=== PATIENT | male | born 1960 ===

== ENCOUNTER 2017-03-05 21:06 | Emergency (ER) | payer SELFPAY ==
[2017-03-05 21:16] VITALS: BP 157/99; PULSE 92; RESP 18; TEMP 98.2; O2SAT 98
--- NOTE | 2017-03-05 21:51 | ED PDOC ---
Lower Extremity Pain/Injury Time Seen by Provider: 03/05/17 21:11 Chief Complaint (Nursing): Lower Extremity Problem/Injury Chief Complaint (Provider): Leg pain Additional Complaint(s): right leg pain rodríguez when he walks foot feels like needle. Past Medical History Reviewed: Nursing Documentation, Vital Signs Vital Signs: Last Vital Signs Temp 98.2 F 03/05/17 21:14 Pulse 92 H 03/05/17 21:14 Resp 18 03/05/17 21:14 BP 157/99 H 03/05/17 21:14 Pulse Ox 98 03/05/17 21:14 - Medical History PMH: No Chronic Diseases - Surgical History Surgical History: No Surg Hx - Family History Family History: States: No Known Family Hx - Living Arrangements Living Arrangements: With Family - Home Medications Home Medications: Ambulatory Orders Medication Instructions Recorded Clotrimazole 1% Cream [Lotrimin 1%] 1 inch TP DAILY #1 tube 11/17/16 Sulfamethoxazole/Trimethoprim 1 tab PO BID #14 tab 11/17/16 [Bactrim DS 800 mg-160 mg] Ibuprofen [Motrin] 600 mg PO Q6 #20 tab 03/05/17 - Allergies Allergies/Adverse Reactions: Allergies Allergy/AdvReac Type Severity Reaction Status Date / Time No Known Allergies Allergy Verified 12/29/16 10:09 Wells Criteria for PE - Wells Criteria for Pulmonary Embolism Clinical Signs and Symptoms of DVT: No P.E is #1 Diagnosis, or Equally Likely: No Heart Rate >100: No Immobilization at least 3 days;Surgery previous 4 weeks: No Previous, objectively diagnosed PE or DVT: No Hemoptysis: No Malignancy w/treatment within 6 months, or palliative: No Total Score: 0 Review of Systems ROS Statement: Except As Marked, All Systems Reviewed And Found Negative Musculoskeletal: Positive for: Leg Pain, Foot Pain Physical Exam - Reviewed Nursing Documentation Reviewed: Yes Vital Signs Reviewed: Yes - Physical Exam Appears: Positive for: Well, Non-toxic, No Acute Distress Head Exam: Positive for: ATRAUMATIC, NORMAL INSPECTION, NORMOCEPHALIC Skin: Positive for: Normal Color, Warm, DRY Eye Exam: Positive for: EOMI, Normal appearance, PERRL ENT: Positive for: Normal ENT Inspection Neck: Positive for: Normal, Painless ROM Cardiovascular/Chest: Positive for: Regular Rate, Rhythm Respiratory: Positive for: CNT, Normal Breath Sounds Gastrointestinal/Abdominal: Positive for: Normal Exam, Bowel Sounds, Soft Back: Positive for: Normal Inspection Extremity: Positive for: Normal ROM Neurologic/Psych: Positive for: Alert, Oriented - ECG O2 Sat by Pulse Oximetry: 98 Medical Decision Making Medical Decision Making: Medicted with 600 mg tab Motrin PO Duplex US: negative for DVD Foot and Knee XR: NAd, as read by PA-C Pt doing well on re-eval, referred to podiatry Disposition - Clinical Impression Clinical Impression: Leg pain - Patient ED Disposition Is Patient to be Admitted: No - Disposition Referrals: Marlon Peng III, MD [Staff Provider] - Disposition: Routine/Home Disposition Time: 23:00 Condition: STABLE Prescriptions: Ibuprofen [Motrin] 600 mg PO Q6 #20 tab Instructions: Leg Pain (ED) Forms: [facility] (German)
--- NOTE | 2017-03-05 22:22 | US ---
EXAM: US Duplex Right Lower Extremity Veins CLINICAL HISTORY: 56 years old, male; Pain; Other: Rt leg TECHNIQUE: Real-time ultrasound scan of the veins of the right lower extremity with color Doppler flow, spectral waveform analysis and compression. COMPARISON: No relevant prior studies available. FINDINGS: Deep veins: Unremarkable. No DVT in the visualized common femoral, femoral, proximal deep femoral or popliteal veins. The veins demonstrate normal color flow, are normally compressible, with normal phasic flow and/or augmentation response. Superficial veins: Unremarkable. Soft tissues: No acute findings. No popliteal cyst. IMPRESSION: Normal right lower extremity duplex venous ultrasound.
--- NOTE | 2017-03-06 09:12 | RAD ---
PROCEDURE: Right Foot Radiographs. HISTORY: pain COMPARISON: None. FINDINGS: BONES: There is no acute displaced fracture or bone destruction bone alignment and mineralization are normal. JOINTS: Normal. SOFT TISSUES: Normal. OTHER FINDINGS: None. IMPRESSION: No acute fracture or dislocation.
--- NOTE | 2017-03-06 09:13 | RAD ---
PROCEDURE: Right Knee Radiographs. HISTORY: Pain COMPARISON: None. FINDINGS: BONES: Normal. No acute fracture. JOINTS: Normal. No osteoarthritis. JOINT EFFUSION: None. OTHER FINDINGS: None. IMPRESSION: No acute fracture or dislocation.
== END 2017-03-05 23:13 | disposition home or self-care (01) ==
LOC: MERGE 21:06 → H.ER 21:06
DX: M79.604 Pain in right leg (principal)

== ENCOUNTER 2017-06-11 20:34 | Inpatient (IN) | payer MEDICAID ==
[2017-06-11 20:34] VITALS: BMI 35.0
--- NOTE | 2017-06-11 21:35 | ED PDOC ---
HPI: Eye Injury/Pain Time Seen by Provider: 06/11/17 20:37 Chief Complaint (Nursing): Eye Problem Chief Complaint (Provider): Right eye visual change History Per: Patient History/Exam Limitations: no limitations Onset/Duration Of Symptoms: Days (5 and a half hours) Injury To Eye?: No Associated Symptoms: Decreased Vision. denies: Pain Additional Complaint(s): Patient is a 56 y/o male with no past medical history who presents to the ED complaining of painless atraumatic vision loss to right eye at 16:00 today while eating, with sudden onset. Patient describes the vision loss as "blurry" and states his vision is the same as if he is opening his eyes while underwater. He reports his symptoms are localized to the right eye, and weston any headache, eye pain, weakness, numbness, or contact lens use. PCP: NO FAMILY PROVIDER Past Medical History Reviewed: Historical Data, Nursing Documentation, Vital Signs Vital Signs: Last Vital Signs Temp 97.9 F 06/11/17 21:03 Pulse 102 H 06/11/17 21:03 Resp 18 06/11/17 21:03 BP 171/103 H 06/11/17 21:22 Pulse Ox 99 06/11/17 21:03 - Medical History PMH: No Chronic Diseases Denies: Chronic Kidney Disease - Surgical History Other surgeries: Removal of cyst on back - Family History Family History: States: Unknown Family Hx - Social History Current smoker - smoking cessation education provided: Yes (Light smoke < 10 cigarettes daily) Alcohol: None Drugs: Cannabis - Immunization History Hx Tetanus Toxoid Vaccination: No Hx Influenza Vaccination: No Hx Pneumococcal Vaccination: No - Home Medications Home Medications: Ambulatory Orders Medication Instructions Recorded No Known Home Med 06/11/17 - Allergies Allergies/Adverse Reactions: Allergies Allergy/AdvReac Type Severity Reaction Status Date / Time No Known Allergies Allergy Verified 12/29/16 10:09 Review of Systems ROS Statement: Except As Marked, All Systems Reviewed And Found Negative Eyes: Positive for: Vision Change (right eye, "blurry" vision). Negative for: Pain Neurological: Negative for: Weakness, Numbness, Headache Physical Exam - Reviewed Nursing Documentation Reviewed: Yes Vital Signs Reviewed: Yes - Physical Exam Appears: Positive for: Well, Non-toxic, No Acute Distress Head Exam: Positive for: ATRAUMATIC, NORMOCEPHALIC Skin: Positive for: Normal Color, Warm, Dry. Negative for: Rash Eye Exam: Positive for: Normal appearance, EOMI, PERRL, Other (No red light reflex on R eye; L eye with red light reflex). Negative for: Nystagmus, Periorbital swelling, Periorbital tenderness, Conjunctival injection, Scleral icterus ENT: Positive for: Normal ENT Inspection Neck: Positive for: Normal, Painless ROM Cardiovascular/Chest: Positive for: Regular Rate, Rhythm. Negative for: Murmur Respiratory: Positive for: Normal Breath Sounds. Negative for: Respiratory Distress Gastrointestinal/Abdominal: Positive for: Normal Exam, Bowel Sounds, Soft. Negative for: Tenderness Back: Positive for: Normal Inspection Extremity: Positive for: Normal ROM Neurologic/Psych: Positive for: Alert, Oriented (x3), Gait (stead unassisted), Other (Equal traffic engineering technician strength bilaterally). Negative for: Motor/Sensory Deficits, Aphasia, Facial Droop - Laboratory Results Result Diagrams: 06/11/17 21:21 06/11/17 21:21 - ECG ECG: Positive for: Interpreted By Me ECG Rhythm: Positive for: Sinus Rhythm. Negative for: ST/T Changes Rate: 88 O2 Sat by Pulse Oximetry: 99 (RA) Pulse Ox Interpretation: Normal - Radiology X-Ray: Interpreted by Me (CXR) Medical Decision Making Medical Decision Makin Initial Plan: --CT Head W/O Contrast --EKG --Labs --Troponin I --PTT --PT/INR --Sales Special Agent --IV Insertion -After patient evaluation, case was discussed with Dr. Mcintyre who recommended CT, blood-work, and consult with Dr. Sandoval 2129 -Case discussed with Dr. Sandoval who agrees with care and recommends measurement of IOP, will see patient in the hospital, also states patient does not require further testing other than CT of head. 2134 R eye IOP: 21, 24, [address] head w/o contrast: 1. No definite acute intracranial abnormality. Acute infarction may be CT occult within first 24 hours. If a focal deficit persists, consider followup CT or MRI for further evaluation. 2. Sinus disease. Pt. evaluated by Dr. Mcintyre. 2222 Case d/w Dr. Ospina and arrangements made for admission. ASA 324mg PO. Repeat BP: 143/81 Scribe Attestation: Documented by Echo Viramontes, acting as a scribe for Abner Singh PA-C Provider Scribe Attestation: All medical record entries made by the Scribe were at my direction and personally dictated by me. I have reviewed the chart and agree that the record accurately reflects my personal performance of the history, physical exam, medical decision making, and the department course for this patient. I have also personally directed, reviewed, and agree with the discharge instructions and disposition. Disposition - Clinical Impression Clinical Impression: Vision loss, right eye - Patient ED Disposition Is Patient to be Admitted: Yes - Disposition Disposition Time: 21:30 Condition: STABLE - Pt Status Changed To: Hospital Disposition Of: Inpatient - Admit Certification Admit to Inpatient:: After my assessment, the patient will require hospitalization for at least two midnights. This is because of the severity of symptoms shown, intensity of services needed, and/or the medical risk in this patient being treated as an outpatient.
[2017-06-11 21:36] LABS: BASO # 0.1 K/uL (0.0-0.2); BASO % 0.8 % (0.0-2.0); EOS # 0.3 K/uL (0.0-0.7); HEMATOCRIT 46.4 % (35.0-51.0); LYMPH # 2.7 K/uL (1.0-4.3); LYMPH % 28.1 % (20.0-40.0); MEAN CELL VOLUME 92.2 fl (80.0-94.0); MEAN CORPUSCULAR HEMOGLOBIN 30.8 pg (27.0-31.0); MEAN CORPUSCULAR HGB CONC 33.5 g/dL (33.0-37.0); MONO # 1.1 K/uL (0.0-0.8); NEUT # 5.5 K/uL (1.8-7.0); NEUT % 57.1 % (50.0-75.0); NRBC % 0.1 % (0.0-0.0); RED CELL DISTRIBUTION WIDTH 13.7 % (11.5-14.5); WHITE BLOOD COUNT 9.6 K/uL (4.8-10.8)
[2017-06-11 21:53] LABS: ALB/GLOB RATIO 1.1 (1.0-2.1); BILIRUBIN,TOTAL 0.6 mg/dl (0.2-1.3); CALCIUM 9.4 mg/dL (8.4-10.2); CARBON DIOXIDE 27 mmol/L (22-30); CHLORIDE 106 mmol/L (98-107); GFR AFRICAN-AMERICAN > 60; GLUCOSE,RANDOM 99 mg/dL (75-110); SODIUM 142 mmol/l (132-148)
[2017-06-11 21:56] LABS: ALKALINE PHOSPHATASE 57 U/L (38-126); ALT/SGPT 56 U/L (21-72); AST/SGOT 45 U/L (17-59); BLOOD UREA NITROGEN 12 mg/dl (9-20); POTASSIUM 4.6 MMOL/L (3.6-5.0)
--- NOTE | 2017-06-11 22:05 | CT ---
EXAM: CT Head Without Intravenous Contrast CLINICAL HISTORY: 56 years old, male; Signs and symptoms; Visual disturbance; Additional info: Sudden loss of vision TECHNIQUE: Axial computed tomography images of the head/brain without intravenous contrast. All CT scans at this facility use one or more dose reduction techniques, viz.: automated exposure control; ma/kV adjustment per patient size (including targeted exams where dose is matched to indication; i.e. head); or iterative reconstruction technique. Coronal and sagittal reformatted images were created and reviewed. COMPARISON: No relevant prior studies available. FINDINGS: Brain: No intracranial hemorrhage. No mass. No definite edema. Ventricles: No hydrocephalus. Bones/joints: No acute fracture. Soft tissues: Unremarkable. Sinuses: Mild mucosal thickening/mild fluid of frontal sinuses. Moderate mucosal thickening/minimal fluid of maxillary sinuses. Moderate to extensive opacification of ethmoid sinuses. Near complete opacification of RIGHT sphenoid sinus. [id number] mucosal thickening/minimal fluid of LEFT sphenoid sinus. Mastoid air cells: No mastoid effusion. Orbits: Unremarkable as visualized. IMPRESSION: 1. No definite acute intracranial abnormality. Acute infarction may be CT occult within first 24 hours. If a focal deficit persists, consider followup CT or MRI for further evaluation. 2. Sinus disease.
[2017-06-12 06:09] VITALS: RESP 18
[2017-06-12 08:37] VITALS: BP 147/89; TEMP 97.8; O2SAT 97
[2017-06-12] MEDS ORDERED: Phenylephrine 10% Opht Soln OU ONE (08:47)
[2017-06-12] MEDS ORDERED: Tropicamide 1% Opht 150 DROP/15 ML EACHEYE SCH (09:00)
[2017-06-12] MEDS: Enoxaparin 40 mg Syringe SC SCH ×2 (09:10→09:11)
--- NOTE | 2017-06-12 11:12 | CARD ---
APPROVED REPORT EKG Measurement Heart [id number] <Conclusion> Normal sinus rhythm Nonspecific ST abnormality Abnormal ECG
--- NOTE | 2017-06-12 11:36 | CP.PCM.HP ---
History of Present Illness - History of Present Illness History of Present Illness: This is a56 y/o male admitted from last night through the ER for sudden blurring of vision of the right eye. There was no associated sx of headaches dizziness. Denies trauma. Symptom started while he was having his dinner. Has no sigificant medical history. Strong family hx of DM 2. Present on Admission - Present on Admission Any Indicators Present on Admission: No History of DVT/PE: No History of Uncontrolled Diabetes: No Urinary Catheter: No Decubitus Ulcer Present: No Past Patient History - Past Medical History & Family History Past Medical History?: No - Past Social History Smoking Status: Light Smoker < 10 Cigarettes Daily - CARDIAC Hx Cardiac Disorders: No - PULMONARY Hx Respiratory Disorders: No - NEUROLOGICAL Hx Neurological Disorder: No - HEENT Hx HEENT Problems: No - RENAL Hx Chronic Kidney Disease: No - ENDOCRINE/METABOLIC Hx Endocrine Disorders: No - HEMATOLOGICAL/ONCOLOGICAL Hx Blood Disorders: No - INTEGUMENTARY Hx Dermatological Problems: No - MUSCULOSKELETAL/RHEUMATOLOGICAL Hx Falls: No - GASTROINTESTINAL Hx Gastrointestinal Disorders: No - GENITOURINARY/GYNECOLOGICAL Hx Genitourinary Disorders: No - PSYCHIATRIC Hx Substance Use: No - SURGICAL HISTORY Hx Surgeries: Yes Other/Comment: removal of cyst to back - ANESTHESIA Hx Anesthesia: Yes Hx Anesthesia Reactions: No Meds Allergies/Adverse Reactions: Allergies Allergy/AdvReac Type Severity Reaction Status Date / Time No Known Allergies Allergy Verified 12/29/16 10:09 Physical Exam - Head Exam Head Exam: NORMAL INSPECTION - Eye Exam Eye Exam: Normal appearance Pupil Exam: NORMAL ACCOMODATION Additional comments: decreased visual acuity right - ENT Exam ENT Exam: Mucous Membranes Moist - Respiratory Exam Respiratory Exam: Clear to Auscultation Bilateral - Cardiovascular Exam Cardiovascular Exam: REGULAR RHYTHM - GI/Abdominal Exam GI & Abdominal Exam: Normal Bowel Sounds - Neurological Exam Neurological exam: CN II-XII Intact, Oriented x3 - Psychiatric Exam Psychiatric exam: Normal Mood Results - Vital Signs Recent Vital Signs: Last Vital Signs Temp 97.8 F 06/12/17 08:00 Pulse 70 06/12/17 08:00 Resp 18 06/12/17 08:00 BP 147/89 06/12/17 08:00 Pulse Ox 97 06/12/17 08:00 - Labs Result Diagrams: 06/11/17 21:21 06/11/17 21:21 Labs: Laboratory Results - last 24 hr 06/11/17 06/11/17 06/11/17 21:21 21:21 21:21 WBC 9.6 RBC 5.04 Hgb 15.5 Hct 46.4 MCV 92.2 MCH 30.8 MCHC 33.5 RDW 13.7 Plt Count 283 MPV 8.0 Neut % (Auto) 57.1 Lymph % (Auto) 28.1 [place] % (Auto) 11.0 H Eos % (Auto) 3.0 Baso % (Auto) 0.8 Neut # 5.5 Lymph # 2.7 [place] # 1.1 H Eos # 0.3 Baso # 0.1 PT 10.7 INR 1.0 APTT 32.0 Sodium 142 Potassium 4.6 Chloride 106 Carbon Dioxide 27 Anion Gap 14 BUN 12 Creatinine 1.0 Est GFR ( Amer) > 60 Est GFR (Non-Af Amer) > 60 Random Glucose 99 Calcium 9.4 Total Bilirubin 0.6 AST 45 ALT 56 Alkaline Phosphatase 57 Troponin I < 0.0120 Total Protein 8.0 Albumin 4.2 Globulin 3.8 Albumin/Globulin Ratio 1.1 Alcohol, Quantitative 06/11/17 21:50 WBC RBC Hgb Hct MCV MCH MCHC RDW Plt Count MPV Neut % (Auto) Lymph % (Auto) [place] % (Auto) Eos % (Auto) Baso % (Auto) Neut # Lymph # [place] # Eos # Baso # PT INR APTT Sodium Potassium Chloride Carbon Dioxide Anion Gap BUN Creatinine Est GFR ( Amer) Est GFR (Non-Af Amer) Random Glucose Calcium Total Bilirubin AST ALT Alkaline Phosphatase Troponin I Total Protein Albumin Globulin Albumin/Globulin Ratio Alcohol, Quantitative < 10 Assessment & Plan (1) Vitreous hemorrhage of right eye Status: Acute (2) Vision loss, right eye Status: Acute (3) Hypertension Status: Acute - Assessment and Plan (Free Text) Plan: Discussed with Optha and noted vitreous hemorrhage low salt low fat diet will Dc to home and follow up with optha start low dose valsartan 80 mg daily
[2017-06-12 11:39] VITALS: PULSE 75
--- NOTE | 2017-06-12 11:41 | CP.PCM.DIS ---
Provider - Provider Date of Admission: 06/11/17 22:23 Attending physician: Carlos Ospina MD Time Spent in preparation of Discharge (in minutes): 30 Diagnosis - Discharge Diagnosis (1) Vitreous hemorrhage of right eye Status: Acute (2) Vision loss, right eye Status: Acute (3) Hypertension Status: Acute Hospital Course - Lab Results Lab Results: Most Recent Lab Values WBC 9.6 K/uL (4.8-10.8) 06/11/17 21:21 RBC 5.04 Mil/uL (4.40-5.90) 06/11/17 21:21 Hgb 15.5 g/dL (12.0-18.0) 06/11/17 21:21 Hct 46.4 % (35.0-51.0) 06/11/17 21:21 MCV 92.2 fl (80.0-94.0) 06/11/17 21:21 MCH 30.8 pg (27.0-31.0) 06/11/17 21:21 MCHC 33.5 g/dL (33.0-37.0) 06/11/17 21:21 RDW 13.7 % (11.5-14.5) 06/11/17 21:21 Plt Count 283 K/uL (130-400) 06/11/17 21:21 MPV 8.0 fl (7.2-11.7) 06/11/17 21:21 Neut % (Auto) 57.1 % (50.0-75.0) 06/11/17 21:21 Lymph % (Auto) 28.1 % (20.0-40.0) 06/11/17 21:21 [place] % (Auto) 11.0 % (0.0-10.0) H 06/11/17 21:21 Eos % (Auto) 3.0 % (0.0-4.0) 06/11/17 21:21 Baso % (Auto) 0.8 % (0.0-2.0) 06/11/17 21:21 Neut # 5.5 K/uL (1.8-7.0) 06/11/17 21:21 Lymph # 2.7 K/uL (1.0-4.3) 06/11/17 21:21 [place] # 1.1 K/uL (0.0-0.8) H 06/11/17 21:21 Eos # 0.3 K/uL (0.0-0.7) 06/11/17 21:21 Baso # 0.1 K/uL (0.0-0.2) 06/11/17 21:21 PT 10.7 Seconds (9.8-13.1) 06/11/17 21:21 INR 1.0 (0.9-1.2) 06/11/17 21:21 APTT 32.0 Seconds (25.6-37.1) 06/11/17 21:21 Sodium 142 mmol/l (132-148) 06/11/17 21:21 Potassium 4.6 MMOL/L (3.6-5.0) 06/11/17 21:21 Chloride 106 mmol/L (98-107) 06/11/17 21:21 Carbon Dioxide 27 mmol/L (22-30) 06/11/17 21:21 Anion Gap 14 (10-20) 06/11/17 21:21 BUN 12 mg/dl (9-20) 06/11/17 21:21 Creatinine 1.0 mg/dl (0.8-1.5) 06/11/17 21:21 Est GFR ( Amer) > 60 06/11/17 21:21 Est GFR (Non-Af Amer) > 60 06/11/17 21:21 Random Glucose 99 mg/dL (75-110) 06/11/17 21:21 Calcium 9.4 mg/dL (8.4-10.2) 06/11/17 21:21 Total Bilirubin 0.6 mg/dl (0.2-1.3) 06/11/17 21:21 AST 45 U/L (17-59) 06/11/17 21:21 ALT 56 U/L (21-72) 06/11/17 21:21 Alkaline Phosphatase 57 U/L (38-126) 06/11/17 21:21 Troponin I < 0.0120 ng/mL (0.00-0.120) 06/11/17 21:21 Total Protein 8.0 G/DL (6.3-8.2) 06/11/17 21:21 Albumin 4.2 g/dL (3.5-5.0) 06/11/17 21:21 Globulin 3.8 gm/dL (2.2-3.9) 06/11/17 21:21 Albumin/Globulin Ratio 1.1 (1.0-2.1) 06/11/17 21:21 Alcohol, Quantitative < 10 mg/dl (0-10) 06/11/17 21:50 - Hospital Course Hospital Course: Admitted for sudden blurred vision of the right. Noted slight elevated BP. Seen by Optha and noted vitreous hemorrhage. Advised to follow up as outpatient. Discharge Exam - Head Exam Head Exam: NORMAL INSPECTION - Eye Exam Eye Exam: Normal appearance - Respiratory Exam Respiratory Exam: NORMAL BREATHING PATTERN - Cardiovascular Exam Cardiovascular Exam: REGULAR RHYTHM - GI/Abdominal Exam GI & Abdominal Exam: Normal Bowel Sounds - Neurological Exam Neurological exam: CN II-XII Intact, Oriented x3 - Psychiatric Exam Psychiatric exam: Normal Mood Discharge Plan - Follow Up Plan Condition: STABLE Disposition: HOME/ ROUTINE Additional Instructions: discharge patient to home will start valsartan 80 mg daily follow up with lynda
--- NOTE | 2017-06-12 13:12 | RAD ---
HISTORY: clearance COMPARISON: No prior. FINDINGS: LUNGS: No acute consolidation. There is a vague nodular density seen in the left CP angle region which may represent confluence of shadow artifact however the possibility of a small parenchymal nodule or granuloma not excluded. Followup nonemergent CT scan of the chest is recommended for further evaluation. PLEURA: No significant pleural effusion identified, no pneumothorax apparent. CARDIOVASCULAR: Normal. OSSEOUS STRUCTURES: No significant abnormalities. VISUALIZED UPPER ABDOMEN: Normal. OTHER FINDINGS: None. IMPRESSION: No acute consolidation. There is a vague nodular density seen in the left CP angle region which may represent confluence of shadow artifact however the possibility of a small parenchymal nodule or granuloma not excluded. Followup nonemergent CT scan of the chest is recommended for further evaluation. . Note this report was placed in PA review folder for followup.
[2017-06-12 16:53] LABS: CHOLESTEROL 166 mg/dL (0-199)
--- NOTE | 2017-06-13 07:09 | CON ---
DATE: HISTORY OF PRESENT ILLNESS: Mr. Contreras is a 56-year-old white male who experienced sudden loss of vision in the right eye yesterday and came to the emergency room and was admitted. PHYSICAL EXAMINATION: His visual acuity is count fingers in the right eye, 20/20 in the left eye. The exam is unremarkable except for a vitreous hemorrhage in the right eye. The retina cannot be well visualized, but my assessment is that he has had a vein occlusion in the right eye. PLAN: My advice is to discharge the patient. I will see him in the office tomorrow and do a workup including fluorescein angiography and probable laser treatment to clear the hemorrhage. Ab Sandoval MD
== END 2017-06-12 13:44 | disposition home or self-care (01) | DRG 47 ==
LOC: H.ER 20:34 → H.ERHOLD 22:23 → H.TEL 06-12 00:28
PROVIDERS: ADMIT Family Medicine; ATTEND Family Medicine
DX: H43.11 Vitreous hemorrhage, right eye (principal); E11.9 Type 2 diabetes mellitus without complications; H54.61 Unqualified visual loss, right eye, normal vision left eye; F17.210 Nicotine dependence, cigarettes, uncomplicated; I10 Essential (primary) hypertension; Z83.3 Family history of diabetes mellitus

== ENCOUNTER 2017-06-15 13:07 | Emergency (ER) | payer MEDICAID ==
[2017-06-15 13:07] VITALS: BMI 35.0
[2017-06-15 13:42] VITALS: BP 149/94; PULSE 73; RESP 18; TEMP 97.7; O2SAT 99
--- NOTE | 2017-06-15 14:10 | ED PDOC ---
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 Patient states he called his insurance for referral, but was told to come to ER. Patient has no medical complaints. Patient is agitated in ER. pt offers no medical complaints. PMD: No Family Provider Past Medical History Vital Signs: Last Vital Signs Temp 97.7 F 06/15/17 13:40 Pulse 73 06/15/17 13:40 Resp 18 06/15/17 13:40 BP 149/94 H 06/15/17 13:40 Pulse Ox 99 06/15/17 15:10 - Medical History PMH: Denies: Chronic Kidney Disease - Family History Family History: States: Unknown Family Hx - Immunization History Hx Tetanus Toxoid Vaccination: No Hx Influenza Vaccination: No Hx Pneumococcal Vaccination: No - Home Medications Home Medications: Ambulatory Orders Medication Instructions Recorded No Known Home Med 06/11/17 - Allergies Allergies/Adverse Reactions: Allergies Allergy/AdvReac Type Severity Reaction Status Date / Time No Known Allergies Allergy Verified 12/29/16 10:09 - ECG O2 Sat by Pulse Oximetry: 99 (RA) Pulse Ox Interpretation: Normal Medical Decision Making Medical Decision Making: Time: 14:09 - 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 pt understands instructions. Scribe Attestation: Documented by Triston Escobar, acting as a scribe for Aissatou Scott PA-C Provider Scribe Attestation: All medical record entries made by the Scribe were at my direction and personally dictated by me. I have reviewed the chart and agree that the record accurately reflects my personal performance of the history, physical exam, medical decision making, and the department course for this patient. I have also personally directed, reviewed, and agree with the discharge instructions and disposition.tIME: 14:09 Disposition - Clinical Impression Clinical Impression: Vitreous hemorrhage of right eye - Patient ED Disposition Is Patient to be Admitted: No - Disposition Referrals: [facility] [Outside] [facility] [Outside] Disposition: Routine/Home Disposition Time: 14:09 Condition: STABLE Instructions: Blurred Vision (ED) Forms: [employer] [facility] (Khmer)
== END 2017-06-15 14:19 | disposition home or self-care (01) ==
LOC: H.ER 13:07
DX: H43.11 Vitreous hemorrhage, right eye (principal)

== ENCOUNTER 2017-06-30 02:51 | Emergency (ER) | payer MEDICAID ==
[2017-06-30 02:51] VITALS: BMI 35.0
[2017-06-30 03:04] VITALS: BP 124/72; PULSE 76; RESP 18; TEMP 98.7; O2SAT 99
--- NOTE | 2017-06-30 03:29 | ED PDOC ---
Lower Extremity Pain/Injury Time Seen by Provider: 06/30/17 03:01 Chief Complaint (Nursing): Lower Extremity Problem/Injury Chief Complaint (Provider): right leg pain History Per: Patient History/Exam Limitations: no limitations Onset/Duration Of Symptoms: Persistent Current Symptoms Are (Timing): Still Present Additional History Per: Patient Additional Complaint(s): 56yo male, with history of hypertension, presents to ED with complaints of right foot pain radiating to his right leg over the last 6 months. Patient states he did not have insurance and did not get a referral for a material reclaimer so he came to the ED. Patient denies taking any medication for his pain. Patient denies any trauma, injuries, swelling, chest pain, shortness of breath. Patient with no other complaints. Past Medical History Reviewed: Historical Data, Nursing Documentation, Vital Signs Vital Signs: Last Vital Signs Temp 98.7 F 06/30/17 03:01 Pulse 76 06/30/17 03:01 Resp 18 06/30/17 03:01 BP 124/72 06/30/17 03:01 Pulse Ox 99 06/30/17 03:01 - Medical History PMH: HTN Denies: Chronic Kidney Disease - Surgical History Surgical History: No Surg Hx - Family History Family History: States: Unknown Family Hx - Immunization History Hx Tetanus Toxoid Vaccination: No Hx Influenza Vaccination: No Hx Pneumococcal Vaccination: No - Home Medications Home Medications: Ambulatory Orders Medication Instructions Recorded Ibuprofen [Motrin Tab] 600 mg PO Q6 #30 tab 06/30/17 - Allergies Allergies/Adverse Reactions: Allergies Allergy/AdvReac Type Severity Reaction Status Date / Time No Known Allergies Allergy Verified 12/29/16 10:09 Review of Systems ROS Statement: Except As Marked, All Systems Reviewed And Found Negative Cardiovascular: Negative for: Chest Pain Respiratory: Negative for: Shortness of Breath Musculoskeletal: Positive for: Leg Pain (right ), Foot Pain (right ) Physical Exam - Reviewed Nursing Documentation Reviewed: Yes Vital Signs Reviewed: Yes - Physical Exam Appears: Positive for: Non-toxic, No Acute Distress Skin: Positive for: Normal Color Eye Exam: Positive for: Normal appearance Neck: Positive for: Supple Cardiovascular/Chest: Positive for: Regular Rate, Rhythm Respiratory: Positive for: Normal Breath Sounds. Negative for: Respiratory Distress Pulses-Dorsalis Pedis (L): 2+ Pulses-Dorsalis Pedis (R): 2+ Extremity: Positive for: Normal ROM (normal ROM right lower extremity), Other ( flattened arches on feet). Negative for: Calf Tenderness, Deformity, Swelling Neurologic/Psych: Positive for: Alert, Oriented. Negative for: Motor/Sensory Deficits - ECG O2 Sat by Pulse Oximetry: 99 (RA) Pulse Ox Interpretation: Normal Medical Decision Making Medical Decision Making: Impression: Pes Planus Plan: -- Flexeril 10 mg PO -- Motrin 600 mg PO Reassess Time: 033 Patient reports feeling much better, stable for discharge home. Patient given referral to material reclaimer for follow up. Scribe Attestation: Documented by Jessica Orourke acting as a scribe for Owen Marie MD. Provider Attestation: All medical record entries made by the Scribe were at my direction and personally dictated by me. I have reviewed the chart and agree that the record accurately reflects my personal performance of the history, physical exam, medical decision making, and the department course for this patient. I have also personally directed, reviewed, and agree with the discharge instructions and disposition. Disposition - Clinical Impression Clinical Impression: Pes planus - Disposition Referrals: Podiatry Clinic [Outside] Yvette Shook MD [Primary Care Provider] - Disposition: Routine/Home Disposition Time: 03:31 Condition: IMPROVED Additional Instructions: Please followup in podiatry clinic. Prescriptions: Ibuprofen [Motrin Tab] 600 mg PO Q6 #30 tab Forms: [employer] (Lithuanian)
== END 2017-06-30 03:30 | disposition home or self-care (01) ==
LOC: H.ER 02:51
DX: M21.41 Flat foot [pes planus] (acquired), right foot (principal); I10 Essential (primary) hypertension

== ENCOUNTER 2017-07-04 14:39 | Emergency (ER) | payer MEDICAID ==
[2017-07-04 14:39] VITALS: BMI 35.0
[2017-07-04 14:47] VITALS: BP 147/103; PULSE 83; RESP 18; TEMP 98; O2SAT 100
--- NOTE | 2017-07-04 15:48 | ED PDOC ---
HPI: General Adult Time Seen by Provider: 07/04/17 14:55 Chief Complaint (Nursing): ENT Problem Chief Complaint (Provider): BLurred vision, right eye History Per: Patient History/Exam Limitations: no limitations Onset/Duration Of Symptoms: Days Have you had recent travel within the past 21 days to any of the following countries: [place], [place], [place] or [place]?: No Current Symptoms Are (Timing): Still Present Additional Complaint(s): Pt reports blurred vision in the right eye since 06/11/17. Pt was admitted to the hospital and evaluated by Dr. Sandoval. PT states that he went to his office for a lazer procedure but when he got there they told him he needed a different card. PT states he comes to ER for further evaluation. Pt states he did not make follow-up with eye doctor yet. No fever/chills. No recent trauma. Pt asks if he can have eye drops. Past Medical History Reviewed: Historical Data, Nursing Documentation, Vital Signs Vital Signs: Last Vital Signs Temp 98 F 07/04/17 14:47 Pulse 83 07/04/17 14:47 Resp 18 07/04/17 14:47 BP 147/103 H 07/04/17 14:47 Pulse Ox 100 07/04/17 15:48 - Medical History PMH: HTN Denies: Chronic Kidney Disease - Surgical History Surgical History: No Surg Hx - Family History Family History: States: Unknown Family Hx - Immunization History Hx Tetanus Toxoid Vaccination: No Hx Influenza Vaccination: No Hx Pneumococcal Vaccination: No - Home Medications Home Medications: Ambulatory Orders Medication Instructions Recorded Ibuprofen [Motrin Tab] 600 mg PO Q6 #30 tab 06/30/17 - Allergies Allergies/Adverse Reactions: Allergies Allergy/AdvReac Type Severity Reaction Status Date / Time No Known Allergies Allergy Verified 12/29/16 10:09 Review of Systems ROS Statement: Except As Marked, All Systems Reviewed And Found Negative Constitutional: Negative for: Fever, Chills Eyes: Positive for: Vision Change Physical Exam - Reviewed Nursing Documentation Reviewed: Yes Vital Signs Reviewed: Yes - Physical Exam Appears: Positive for: Well, Non-toxic, No Acute Distress Head Exam: Positive for: ATRAUMATIC, NORMAL INSPECTION, NORMOCEPHALIC Skin: Positive for: Normal Color, Warm, DRY Eye Exam: Positive for: Normal appearance, EOMI, PERRL, Other (Difficult to fully visualize optic disk) ENT: Positive for: Normal ENT Inspection Neck: Positive for: Normal, Painless ROM Cardiovascular/Chest: Positive for: Regular Rate, Rhythm Respiratory: Positive for: CNT, Normal Breath Sounds Back: Positive for: Normal Inspection Extremity: Positive for: Normal ROM Neurologic/Psych: Positive for: Alert, instructor looping II-XII, Oriented, Gait. Negative for : Aphasia, Facial Droop - ECG O2 Sat by Pulse Oximetry: 100 Disposition - Clinical Impression Clinical Impression: Vitreous hemorrhage of right eye - Patient ED Disposition Is Patient to be Admitted: No Counseled Patient/Family Regarding: Diagnosis, Need For Followup - Disposition Referrals: [facility] [Outside] [facility] [Outside] Disposition: Routine/Home Disposition Time: 15:44 Condition: GOOD Additional Instructions: Please follow-up with Dr. Sandoval or inspector canned food reconditioning of your choice. Instructions: Blurred Vision (ED) Forms: [employer] (Grenadian)
== END 2017-07-04 17:46 | disposition left against medical advice (07) ==
LOC: H.ER 14:39
DX: H43.11 Vitreous hemorrhage, right eye (principal); I10 Essential (primary) hypertension

== ENCOUNTER 2017-07-13 08:13 | Emergency (ER) | payer MEDICAID ==
[2017-07-13 08:15] VITALS: BMI 35.4
[2017-07-13 08:17] VITALS: BP 138/90; PULSE 85; RESP 16; TEMP 98.4; O2SAT 99
[2017-07-13] MEDS ORDERED: Tetracaine 0.5% Ophth 2 ML BOTTLE OD ONE (09:01)
[2017-07-13] MEDS ORDERED: Fluorescein 1 mg Ophthalmic Strip OD STA (09:01)
--- NOTE | 2017-07-13 09:30 | ED PDOC ---
HPI: Eye Injury/Pain Time Seen by Provider: 07/13/17 09:00 Chief Complaint (Nursing): Eye Problem Chief Complaint (Provider): Eye Problem History Per: Patient History/Exam Limitations: no limitations Onset/Duration Of Symptoms: Days (x 1 month) Current Symptoms Are (Timing): Still Present Additional Complaint(s): 56 year old male with history of high blood pressure presents to the ED complaining of right eye pain, onset 1 month ago. Patient describes the pain in both inside and behind his eye as "burning". He has had loss of vision since 06/12/2017 when he was treated at the ED and admitted for "burst veins in his eye". He reports having watery discharge from his eye. Denies any trauma. No contacts or glasses. PMD: Yvette Shook MD Past Medical History Reviewed: Historical Data, Nursing Documentation, Vital Signs Vital Signs: Last Vital Signs Temp 98.4 F 07/13/17 08:15 Pulse 85 07/13/17 08:15 Resp 16 07/13/17 08:15 BP 138/90 07/13/17 08:15 Pulse Ox 99 07/13/17 08:15 - Medical History PMH: HTN Denies: Chronic Kidney Disease - Family History Family History: States: Unknown Family Hx - Immunization History Hx Tetanus Toxoid Vaccination: No Hx Influenza Vaccination: No Hx Pneumococcal Vaccination: No - Home Medications Home Medications: Ambulatory Orders Medication Instructions Recorded Ibuprofen [Motrin Tab] 600 mg PO Q6 #30 tab 06/30/17 Erythromycin 0.5% [Ilytocin] 1 mg OD QID #1 tube 07/13/17 - Allergies Allergies/Adverse Reactions: Allergies Allergy/AdvReac Type Severity Reaction Status Date / Time No Known Allergies Allergy Verified 07/13/17 08:24 Review of Systems ROS Statement: Except As Marked, All Systems Reviewed And Found Negative Eyes: Positive for: Pain, Vision Change, Redness Physical Exam - Reviewed Nursing Documentation Reviewed: Yes Vital Signs Reviewed: Yes - Physical Exam Appears: Positive for: Non-toxic, No Acute Distress Head Exam: Positive for: ATRAUMATIC, NORMOCEPHALIC Skin: Positive for: Normal Color, Warm, Dry Eye Exam: Positive for: Other (right eye redness and sensitivity to light; no discharge; visual acuity in patient care note. ) Neck: Positive for: Normal, Painless ROM, Supple Cardiovascular/Chest: Positive for: Regular Rate, Rhythm. Negative for: Murmur Respiratory: Positive for: Normal Breath Sounds. Negative for: Wheezing Gastrointestinal/Abdominal: Positive for: Normal Exam, Soft - ECG O2 Sat by Pulse Oximetry: 99 (RA) Pulse Ox Interpretation: Normal Medical Decision Making Medical Decision Making: Time 09:01 Initial Plan: Right eye pain and discharge r/o corneal abrasion r/o conjunctivitis --Fluorescein 1 mg OD --Tetracaine .5% Tonometer reading of right eye: 16. 2 drops applied to right eye. Fluorescein applied. Fluorescein álvarez lamp used to assess for uptake. Left lower cornea with uptake. Will treat for corneal abrasion with antibiotics. Discussed case with Dr. Sandoval, Opthamology he said patient can follow up with him today at 10am. Patient states he will make an appointment because he says he cannot go today. I expressed to him the importance of this follow up for his eye and vision. Scribe Attestation: Documented by Marie Ellington, acting as a scribe for Frederick Klein DO Provider Scribe Attestation: All medical record entries made by the Scribe were at my direction and personally dictated by me. I have reviewed the chart and agree that the record accurately reflects my personal performance of the history, physical exam, medical decision making, and the department course for this patient. I have also personally directed, reviewed, and agree with the discharge instructions and disposition. Disposition - Clinical Impression Clinical Impression: Corneal abrasion - Disposition Referrals: Ab Sandoval MD [Staff Provider] - Disposition Time: 10:00 Condition: IMPROVED Additional Instructions: Mr Contreras, thank you for letting us take care of you today. Your provider was Dr. Klein. You were treated for Corneal Abrasion. The emergency medical care you received today was directed at your acute symptoms. If you were prescribed any medication, please fill it and take as directed. It may take several days for your symptoms to resolve. Return to the Emergency Department if your symptoms worsen, do not improve, or if you have any other problems. Please contact your doctor or call one of the physicians/clinics you have been referred to that are listed on the Patient Visit Information form that is included in your discharge packet. Bring any paperwork you were given at discharge with you along with any medications you are taking to your follow up visit. Our treatment cannot replace ongoing medical care by a primary care provider (PCP) outside of the emergency department. Thank you for allowing the [facility] team to be part of your care today. If you had an X-Ray or CT scan: A Radiologist will review the ED reading if any change in treatment is needed we will contact you. If you had a blood, urine, or wound culture: It will take several days for the results, if any change in treatment is needed we will contact you. If you had an STI test: It will take 48 hours for the results. Please call after 1 week if you have not heard back. Prescriptions: Erythromycin 0.5% [Ilytocin] 1 mg OD QID #1 tube Instructions: Corneal Abrasion (ED) Forms: [employer] (Tajik)
== END 2017-07-13 10:01 | disposition home or self-care (01) ==
LOC: H.ER 08:13
DX: H57.11 Ocular pain, right eye (principal); I10 Essential (primary) hypertension

== ENCOUNTER 2017-08-26 03:22 | Emergency (ER) | payer MEDICAID ==
[2017-08-26 03:22] VITALS: BMI 35.4
[2017-08-26 03:52] VITALS: BP 131/79; PULSE 77; RESP 16; TEMP 98; O2SAT 98
[2017-08-26] MEDS ORDERED: Sodium Chloride 0.9% 1,000 ML IV SCH (04:30)
--- NOTE | 2017-08-26 05:04 | ED PDOC ---
HPI: Abdomen Time Seen by Provider: 08/26/17 03:29 Chief Complaint (Nursing): Abdominal Pain History Per: Patient History/Exam Limitations: no limitations Onset/Duration Of Symptoms: Days (2) Current Symptoms Are (Timing): Still Present Additional Complaint(s): 56 yo M complains of crampy intermittent non-radiating epigastric abdominal pain , associated with nausea, multiple episodes of vomiting and diarrhea x 2 days. Otherwise: (-) chest pain, (-) SOB, (-) back pain, (-) recent travel, (+) sick contacts, (-) recent antibiotic use, (-) food that could have caused his symptoms, (-) fever, (-) melena, (-) hematochezia. Has no history of prior abdominal surgery. No other complaints. PMD Clinic Past Medical History Vital Signs: Last Vital Signs Temp 98 F 08/26/17 03:48 Pulse 77 08/26/17 03:48 Resp 16 08/26/17 03:48 BP 131/79 08/26/17 03:48 Pulse Ox 98 08/26/17 03:48 - Medical History PMH: HTN Denies: Chronic Kidney Disease - Family History Family History: States: Unknown Family Hx - Immunization History Hx Tetanus Toxoid Vaccination: No Hx Influenza Vaccination: No Hx Pneumococcal Vaccination: No - Home Medications Home Medications: Ambulatory Orders Medication Instructions Recorded Ibuprofen [Motrin Tab] 600 mg PO Q6 #30 tab 06/30/17 Erythromycin 0.5% [Ilytocin] 1 mg OD QID #1 tube 07/13/17 Dicyclomine [Bentyl] 20 mg PO QID PRN #20 tab 08/26/17 Ondansetron ODT [Zofran ODT] 4 mg PO DAILY PRN #20 odt 08/26/17 - Allergies Allergies/Adverse Reactions: Allergies Allergy/AdvReac Type Severity Reaction Status Date / Time No Known Allergies Allergy Verified 08/26/17 03:48 Review of Systems Constitutional: Negative for: Fever, Chills, Weakness Cardiovascular: Negative for: Chest Pain, Palpitations, Orthopnea Respiratory: Negative for: Cough, Shortness of Breath, SOB with Exertion Gastrointestinal: Positive for: Nausea, Vomiting, Abdominal Pain, Diarrhea Genitourinary Male: Negative for: Dysuria, Frequency Musculoskeletal: Negative for: Neck Pain, Back Pain Skin: Negative for: Rash, Lesions Physical Exam - Physical Exam Comments: GENERALIZED APPEARANCE: Patient is AAOx3, in mild distress, laying in bed comfortably. VITAL SIGNS: Per nurse's note, reviewed by me. SKIN: Warm, dry; (-) cyanosis. EYES: (-) conjunctival pallor, (-) scleral icterus. ENMT: Mucous membranes dry. NECK: (-) tenderness, (-) stiffness, (-) lymphadenopathy. CHEST AND RESPIRATORY: (-) rales, (-) rhonchi, (-) wheezes; breath sounds equal bilaterally. HEART AND CARDIOVASCULAR: (-) irregularity; (-) murmur, (-) gallop. ABDOMEN AND GI: (-) distention. Bowel sounds active; (+) epigastric tenderness , (-) guarding, (-) rebound, (-) palpable masses, (-) CVA tenderness. EXTREMITIES: (-) deformity, (-) edema, (+) distal pulses. NEURO AND PSYCH: Mental status as above; (-) focal findings. - ECG O2 Sat by Pulse Oximetry: 98 Medical Decision Making Medical Decision Making: Plan : - Labs - IV - NS bolus - Pepcid IV / zofran IV / Bentyl IM - EKG - CXR EKG: NSR at 67 bpm, (-) acute ST changes, as read by JOELLE. CXR: NAD, as read by JOELLE. IV access obtained by RN, but no labs. PA and RN attempted to do another blood draw however the patient is refusing due to needle phobia. Patient notified of the importance and the need to do lab work however he is still refusing and states that he would rather sign out AMA rather than having a 2nd blood draw. Patient refuses further care, evaluation or treatment in the ER. Patient informed of the reasons for the following and planned treatment, which patient understands, however still refuses. Patient informed of the risk and benefits of treatment. Informed that the risk could include worsening of current conditions, undiagnosed conditions, disability or even . Patient understands the following risk and the benefits of treatment. Patient has the capacity to make decisions and still refuses treatment by RN, PA and ER MD. Patient encouraged to return to the ER at any time and to follow up with pmd. Disposition - Clinical Impression Clinical Impression: Abdominal pain, Vomiting and diarrhea Counseled Patient/Family Regarding: Studies Performed, Diagnosis, Need For Followup, Rx Given - Disposition Disposition: Against Medical Advice Disposition Time: 05:45 Condition: UNKNOWN Additional Instructions: Thank you for letting us take care of you today. You were treated for abdominal pain, vomiting, diarrhea, likely gastroenteritis. The emergency medical care you received today was directed at your acute symptoms. If you were prescribed any medication, please fill it and take as directed. It may take several days for your symptoms to resolve. Return to the Emergency Department if your symptoms worsen, do not improve, if you have any other problems, or if you change your mind. Please contact your doctor in 2 days for re-evaluation and follow up. Bring any paperwork you were given at discharge with you along with any medications you are taking to your follow up visit. Our treatment cannot replace ongoing medical care by a primary care provider (PCP) outside of the emergency department. Thank you for allowing the [facility] team to be part of your care today. Prescriptions: Dicyclomine [Bentyl] 20 mg PO QID PRN #20 tab PRN Reason: Other Ondansetron ODT [Zofran ODT] 4 mg PO DAILY PRN #20 odt PRN Reason: Nausea/Vomiting Instructions: Acute Abdomen (Belly Pain), Adult (DC), Viral Gastroenteritis, Adult (DC), Leaving Against Medical Advice
--- NOTE | 2017-08-26 09:01 | RAD ---
PROCEDURE: CHEST RADIOGRAPH, 1 VIEW HISTORY: epigastric pain COMPARISON: Chest radiograph dated 06/11/2017. FINDINGS: LUNGS: Clear. PLEURA: No pneumothorax or pleural fluid seen. CARDIOVASCULAR: Normal. OSSEOUS STRUCTURES: Unchanged. VISUALIZED UPPER ABDOMEN: Normal. OTHER FINDINGS: None. IMPRESSION: No active disease.
--- NOTE | 2017-08-26 19:03 | CARD ---
APPROVED REPORT EKG Measurement Heart [id number] <Conclusion> Normal sinus rhythm Nonspecific T wave abnormality Abnormal ECG
== END 2017-08-26 05:30 | disposition left against medical advice (07) ==
LOC: H.ER 03:22
DX: R19.7 Diarrhea, unspecified (principal); R11.10 Vomiting, unspecified; R10.13 Epigastric pain; I10 Essential (primary) hypertension
CPT/HCPCS: 71045; 93005; 96361; 96374; 96375; 99283; J2405; J7040

== ENCOUNTER 2017-11-05 17:37 | Emergency (ER) | payer MEDICAID ==
[2017-11-05 17:38] VITALS: BMI 35.4
[2017-11-05 17:47] VITALS: BP 180/106; PULSE 71; RESP 18; TEMP 98; O2SAT 98
--- NOTE | 2017-11-05 19:02 | ED PDOC ---
HPI: Dental Pain/Injury Time Seen by Provider: 11/05/17 18:01 Chief Complaint (Nursing): Dental Pain Chief Complaint (Provider): Dental Pain History Per: Patient History/Exam Limitations: no limitations Onset/Duration Of Symptoms: Days (2x) Current Symptoms Are (Timing): Still Present Quality: "Pain" Additional Complaint(s): 56 year old male presents to the ED complaining of right upper and lower toothache pain that began 2 days ago. Patient took Advil without any relief. Otherwise: (-) fever, (-) sinusitis, (-) local trauma, (-) chest pain, (-) dyspnea (-) headache (-) earache (-) visual symptoms. PMD: No family Provider Past Medical History Reviewed: Historical Data, Nursing Documentation, Vital Signs Vital Signs: Last Vital Signs Temp 98 F 11/05/17 17:45 Pulse 71 11/05/17 17:45 Resp 18 11/05/17 17:45 BP 180/106 H 11/05/17 17:45 Pulse Ox 98 11/05/17 17:45 - Medical History PMH: HTN Denies: Chronic Kidney Disease - Family History Family History: States: Unknown Family Hx - Social History Current smoker - smoking cessation education provided: Yes (Light Smoker < 10 Cigarettes Daily) Alcohol: None Drugs: Denies - Immunization History Hx Tetanus Toxoid Vaccination: No Hx Influenza Vaccination: No Hx Pneumococcal Vaccination: No - Home Medications Home Medications: Ambulatory Orders Medication Instructions Recorded Ibuprofen [Motrin Tab] 600 mg PO Q6 #30 tab 06/30/17 Erythromycin 0.5% [Ilytocin] 1 mg OD QID #1 tube 07/13/17 Dicyclomine [Bentyl] 20 mg PO QID PRN #20 tab 08/26/17 Ondansetron ODT [Zofran ODT] 4 mg PO DAILY PRN #20 odt 08/26/17 traMADol [Ultram] 50 mg PO TID PRN #15 tab 11/05/17 - Allergies Allergies/Adverse Reactions: Allergies Allergy/AdvReac Type Severity Reaction Status Date / Time No Known Allergies Allergy Verified 11/05/17 17:44 Review of Systems ROS Statement: Except As Marked, All Systems Reviewed And Found Negative Constitutional: Negative for: Other (local trauma) Eyes: Negative for: Vision Change ENT: Positive for: Mouth Pain (right upper and lower toothache). Negative for: Ear Pain Cardiovascular: Negative for: Chest Pain Neurological: Negative for: Headache Physical Exam - Physical Exam Comments: GENERAL APPEARANCE: Patient is awake, alert, oriented x 3, in no acute distress. SKIN: Warm, dry; (-) cyanosis. ENMT: (-) sinus swelling or tenderness, (+) tenderness to percussion to the R upper and lower precanine tooth, (-) gingival swelling, (-) fluctuance. Pharynx: (-) tongue elevation, (-) exudate. Airway patent: (-) stridor. (-) Submandibular or submental neck swelling (-) pseudomembranes NECK: (-) tenderness, (-) crepitus. - ECG O2 Sat by Pulse Oximetry: 98 (RA) Pulse Ox Interpretation: Normal Medical Decision Making Medical Decision Making: Time: 1831 Initial Plan: --Ultram 50 mg --Reevaluation [place] BELL ATTENDANT aware reveals no controlled substances Rx to the patient in the past year. Advised to follow up with dentist in 1-2 days without fail. Advised to take medication as prescribed. Return to the emergency room at any time for any new or worsening symptoms. Patient states he fully agrees with and understands discharge instructions. States that he agrees with the plan and disposition. Verbalized and repeated discharge instructions and plan. I have given the patient opportunity to ask any additional questions. Scribe Attestation: Documented by Fifi Ware, acting as a scribe for Bella Bowles PA-C Provider Scribe Attestation: All medical record entries made by the Scribe were at my direction and personally dictated by me. I have reviewed the chart and agree that the record accurately reflects my personal performance of the history, physical exam, medical decision making, and the department course for this patient. I have also personally directed, reviewed, and agree with the discharge instructions and disposition. Disposition - Clinical Impression Clinical Impression: Toothache - Patient ED Disposition Is Patient to be Admitted: No Counseled Patient/Family Regarding: Diagnosis, Need For Followup, Rx Given - Disposition Disposition: Routine/Home Disposition Time: 18:20 Condition: STABLE Additional Instructions: Thank you for letting us take care of you today. You were treated for tooth ache. The emergency medical care you received today was directed at your acute symptoms. If you were prescribed any medication, please fill it and take as directed. Return to the Emergency Department if your symptoms worsen, do not improve, or if you have any other problems. Please contact your dentist in 2 days for re-evaluation and follow up. Bring any paperwork you were given at discharge with you along with any medications you are taking to your follow up visit. Our treatment cannot replace ongoing medical care by a primary care provider (PCP) outside of the emergency department. Thank you for allowing the [facility] team to be part of your care today. Prescriptions: traMADol [Ultram] 50 mg PO TID PRN #15 tab PRN Reason: Pain, Moderate (4-7) Instructions: Dental Pain (DC) Forms: [employer] (Luxembourger) - PA / DIRECTOR OF DESIGN / Resident Statement MD/DO has reviewed & agrees with the documentation as recorded.
== END 2017-11-05 18:57 | disposition home or self-care (01) ==
LOC: H.ER 17:37
DX: K08.89 Other specified disorders of teeth and supporting structures (principal); I10 Essential (primary) hypertension; F17.210 Nicotine dependence, cigarettes, uncomplicated

== ENCOUNTER 2017-12-17 22:09 | Emergency (ER) | payer MEDICAID ==
[2017-12-17 22:10] VITALS: BMI 35.4
[2017-12-17 22:46] VITALS: TEMP 98.1
--- NOTE | 2017-12-17 23:23 | ED PDOC ---
HPI: Eye Injury/Pain Time Seen by Provider: 12/17/17 22:45 Chief Complaint (Nursing): Eye Problem Chief Complaint (Provider): s/p eye surgery History/Exam Limitations: no limitations Onset/Duration Of Symptoms: Days (two) Current Symptoms Are (Timing): Still Present Injury To Eye?: No Severity: Moderate Wears Contact Lens?: No Additional Complaint(s): Pt presents to the ED s/p retinal detachment surgery performed on 12/16 (one day prior to presentation) complaining of excrutiating pain to th eright eye following the surgery. Pt indicates that no pain medication was provided and that he has not begun all of the perscriptions as of yet. Pt saw his surgeon the morning of presenation. Pt denies fever, NVD or other symptoms Past Medical History Reviewed: Historical Data, Nursing Documentation, Vital Signs Vital Signs: Last Vital Signs Temp 98.1 F 12/17/17 22:45 Pulse 76 12/17/17 22:45 Resp 16 12/17/17 22:45 BP 143/85 12/17/17 22:45 Pulse Ox 99 12/17/17 22:45 - Medical History PMH: HTN Denies: Chronic Kidney Disease - Surgical History Other surgeries: retinal detachment surgery on 12/16 - Family History Family History: States: Unknown Family Hx - Immunization History Hx Tetanus Toxoid Vaccination: No Hx Influenza Vaccination: No Hx Pneumococcal Vaccination: No - Home Medications Home Medications: Ambulatory Orders Medication Instructions Recorded Ibuprofen [Motrin Tab] 600 mg PO Q6 #30 tab 06/30/17 Erythromycin 0.5% [Ilytocin] 1 mg OD QID #1 tube 07/13/17 Dicyclomine [Bentyl] 20 mg PO QID PRN #20 tab 08/26/17 Ondansetron ODT [Zofran ODT] 4 mg PO DAILY PRN #20 odt 08/26/17 traMADol [Ultram] 50 mg PO TID PRN #15 tab 11/05/17 Dorzolamide 2% [Trusopt 2% 2 drop OD TID #5 ml 12/18/17 Ocumeter Plus] oxyCODONE/Acetaminophen [Percocet 1 ea PO QID #16 tab 12/18/17 5/325 mg Tab] - Allergies Allergies/Adverse Reactions: Allergies Allergy/AdvReac Type Severity Reaction Status Date / Time No Known Allergies Allergy Verified 12/17/17 22:46 Review of Systems ROS Statement: Except As Marked, All Systems Reviewed And Found Negative Constitutional: Negative for: Fever, Chills, Sweats Eyes: Positive for: Pain. Negative for: Redness Physical Exam - Reviewed Nursing Documentation Reviewed: Yes Vital Signs Reviewed: Yes - Physical Exam Appears: Positive for: Well, Uncomfortable Head Exam: Positive for: ATRAUMATIC, NORMAL INSPECTION, NORMOCEPHALIC Skin: Positive for: Normal Color, Warm, Dry Eye Exam: Positive for: Other. Negative for: Periorbital swelling, Periorbital tenderness, Conjunctival injection Neck: Positive for: Normal, Painless ROM, Supple. Negative for: Decreased ROM Cardiovascular/Chest: Positive for: Regular Rate, Rhythm Respiratory: Positive for: Normal Breath Sounds Pulses-Carotid (L): 2+ Pulses-Carotid (R): 2+ Pulses-Radial (L): 2+ Pulses-Radial (R): 2+ - Laboratory Results Result Diagrams: 12/17/17 23:30 12/17/17 23:30 - ECG O2 Sat by Pulse Oximetry: 99 Medical Decision Making Medical Decision Making: Contact made with Dr Job Zhong, the pt surgeon. Dr Zhong ordered pt placed on Trusopt TID and continue the other medications as well, including the steriod and the antibiotic; Dr Zhong indicated as well that the pt should follow up with him in the morning and the cellular phone number was provided to the patient to facilitate this contact. No restrictions on pain medication Disposition - Clinical Impression Clinical Impression: Pain, eye, right - Patient ED Disposition Is Patient to be Admitted: No Discussed With : Rufino Zhong Comment: Dr Zhong rx the Trusopt TID; no restrictions on pain medication; pt should follow up with Dr Zhong in the morning (Tuesday Morning) and should call his cell phone Doctor Will See Patient In The: Office Counseled Patient/Family Regarding: Diagnosis, Need For Followup, Rx Given - Disposition Referrals: Rufino Zhong MD [Medical Doctor] - Disposition: Routine/Home Disposition Time: 01:28 Condition: STABLE Prescriptions: Dorzolamide 2% [Trusopt 2% Ocumeter Plus] 2 drop OD TID #5 ml oxyCODONE/Acetaminophen [Percocet 5/325 mg Tab] 1 ea PO QID #16 tab Instructions: Retinal Detachment Repair Forms: [email or web address] (Paraguayan)
[2017-12-17] MEDS ORDERED: Dorzolamide 2% Ophth Soln OU STA (23:37)
[2017-12-17 23:40] LABS: BASO # 0.1 K/uL (0.0-0.2); BASO % 0.3 % (0.0-2.0); EOS % 0.2 % (0.0-4.0); HEMOGLOBIN 16.5 g/dL (12.0-18.0); LYMPH # 3.2 K/uL (1.0-4.3); LYMPH % 16.9 % (20.0-40.0); MEAN CELL VOLUME 91.6 fl (80.0-94.0); MEAN CORPUSCULAR HEMOGLOBIN 31.2 pg (27.0-31.0); MEAN CORPUSCULAR HGB CONC 34.1 g/dL (33.0-37.0); MEAN PLATELET VOLUME 8.2 fl (7.2-11.7); MONO # 1.6 K/uL (0.0-0.8); MONO % 8.4 % (0.0-10.0); NEUT % 74.2 % (50.0-75.0); NRBC % 0.1 % (0.0-0.0); RBC 5.28 Mil/uL (4.40-5.90); RED CELL DISTRIBUTION WIDTH 14.3 % (11.5-14.5); WHITE BLOOD COUNT 18.8 K/uL (4.8-10.8)
[2017-12-17 23:55] LABS: ALB/GLOB RATIO 1.1 (1.0-2.1); ALBUMIN 4.4 g/dL (3.5-5.0); ALT/SGPT 51 U/L (21-72); AST/SGOT 37 U/L (17-59); BLOOD UREA NITROGEN 17 mg/dl (9-20); CALCIUM 9.8 mg/dL (8.4-10.2); GFR AFRICAN-AMERICAN > 60; GFR NON-AFRICAN AMERICAN > 60
[2017-12-18] MEDS ORDERED: Oxycodone/Acetaminophen 5/325 mg Tab PO STA (00:02)
[2017-12-18] MEDS ORDERED: Oxycodone/Acetaminophen 5/325 mg Tab ONE (00:22)
[2017-12-18 00:55] VITALS: BP 131/82; PULSE 77; RESP 15
[2017-12-18 01:29] VITALS: O2SAT 99
== END 2017-12-18 01:50 | disposition home or self-care (01) ==
LOC: H.ER 22:09
DX: H57.11 Ocular pain, right eye (principal); Z98.890 Other specified postprocedural states; I10 Essential (primary) hypertension

== ENCOUNTER 2018-02-03 00:04 | Emergency (ER) | payer MEDICAID ==
[2018-02-03 00:04] VITALS: BMI 35.4
[2018-02-03 00:38] VITALS: RESP 18; O2SAT 95
[2018-02-03] MEDS ORDERED: Tdap Vaccine 0.5 ml Vial (10-64 yrs) IM ONE ×2 (00:41→01:07)
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
[2018-02-03 06:05] VITALS: BP 140/84; PULSE 91; TEMP 98.4
--- NOTE | 2018-02-03 11:43 | CT ---
Date of service: 02/03/2018 PROCEDURE: CT HEAD WITHOUT CONTRAST. HISTORY: head injury COMPARISON: Noncontrast head CT 06/11/2017. TECHNIQUE: Axial computed tomography images were obtained through the head/brain without intravenous contrast. Radiation dose: Total exam DLP = 804.11 mGy-cm. This CT exam was performed using one or more of the following dose reduction techniques: Automated exposure control, adjustment of the mA and/or kV according to patient size, and/or use of iterative reconstruction technique. FINDINGS: HEMORRHAGE: No intracranial hemorrhage. BRAIN: Normal hathaway-white matter differentiation and density are appreciated throughout the cerebrum and cerebellum with the brainstem appearing unremarkable as well. There is no mass effect. There is no suspicious extra-axial fluid collection and the midline brain anatomy appears diffusely unremarkable. VENTRICLES: Unremarkable. No hydrocephalus. CALVARIUM: No destructive bony lesion or displaced fracture identified including through the skullbase. PARANASAL SINUSES: Mild multifocal ethmoid sinusitis appreciated. Trace left frontal sinus disease. MASTOID AIR CELLS: Unremarkable as visualized. No inflammatory changes. OTHER FINDINGS: None. IMPRESSION: 1. No suspicious findings throughout the supra and infratentorial compartments including the brainstem, stable in the interval compared to CT 06/11/2017. No displaced fracture identified. 2. Postoperative changes seen at the right globe potential including gas within the globe. Clinically correlate. 3. No displaced fracture identified. 4. Limited sinus disease as discussed above. Concordant preliminary report from [facility], 02/03/2018.
== END 2018-02-03 02:11 | disposition home or self-care (01) ==
LOC: H.ER 00:04
DX: S09.90XA Unspecified injury of head, initial encounter (principal); S00.01XA Abrasion of scalp, initial encounter; W19.XXXA Unspecified fall, initial encounter; Y92.89 Other specified places as the place of occurrence of the external cause; I10 Essential (primary) hypertension

== ENCOUNTER 2018-04-30 22:51 | Emergency (ER) | payer MEDICAID ==
[2018-04-30 22:51] VITALS: BMI 35.4
[2018-04-30 23:02] VITALS: BP 143/90; PULSE 70; RESP 18; TEMP 98; O2SAT 99
--- NOTE | 2018-04-30 23:17 | ED PDOC ---
HPI: Skin/Bite Injury Time Seen by Provider: 04/30/18 23:10 Chief Complaint (Nursing): Abnormal Skin Integrity Chief Complaint (Provider): Skin Abnormality History Per: Patient History/Exam Limitations: no limitations Onset/Duration Of Symptoms: Days (x2 months) Current Symptoms Are (Timing): Still Present Additional Complaint(s): Patient is a 57 year old male who presents for evaluation of a painless growth to his first webspace of the left hand. Patient has not been taking any medications prior to arrival. Patient denies any trauma or injury. No reports of fever or wound drainage. Patient is right hand dominant. PMD: clinic Past Medical History Reviewed: Historical Data, Nursing Documentation, Vital Signs Vital Signs: Last Vital Signs Temp 98 F 04/30/18 22:59 Pulse 70 04/30/18 22:59 Resp 18 04/30/18 22:59 BP 143/90 04/30/18 22:59 Pulse Ox 99 04/30/18 22:59 - Medical History PMH: HTN - Surgical History Other surgeries: right eye procedure - Family History Family History: States: Unknown Family Hx - Social History Current smoker - smoking cessation education provided: Yes Alcohol: None Drugs: Denies - Home Medications Home Medications: Ambulatory Orders Medication Instructions Recorded RX: Ibuprofen [Motrin Tab] 600 mg PO Q6 #30 tab 06/30/17 Erythromycin 0.5% [Ilytocin] 1 mg OD QID #1 tube 07/13/17 Dicyclomine [Bentyl] 20 mg PO QID PRN #20 tab 08/26/17 Ondansetron ODT [Zofran ODT] 4 mg PO DAILY PRN #20 odt 08/26/17 RX: traMADol [Ultram] 50 mg PO TID PRN #15 tab 11/05/17 Dorzolamide 2% [Trusopt 2% 2 drop OD TID #5 ml 12/18/17 Ocumeter Plus] oxyCODONE/Acetaminophen [Percocet 1 ea PO QID #16 tab 12/18/17 5/325 mg Tab] - Allergies Allergies/Adverse Reactions: Allergies Allergy/AdvReac Type Severity Reaction Status Date / Time No Known Allergies Allergy Verified 12/17/17 22:46 Review of Systems ROS Statement: Except As Marked, All Systems Reviewed And Found Negative Skin: Positive for: Other (growth to hand) Physical Exam - Reviewed Nursing Documentation Reviewed: Yes Vital Signs Reviewed: Yes - Physical Exam Appears: Positive for: Well, Non-toxic (Resting comfortably.), No Acute Distress Head Exam: Positive for: ATRAUMATIC, NORMOCEPHALIC Skin: Positive for: Normal Color, Warm, Dry (wart like growth measuring 1cm x 1cm to dorsum of first webspace of left hand (-) tenderness (-) drainage (-) erythema (-) warmth) Eye Exam: Positive for: Normal appearance Neck: Positive for: Painless ROM, Supple Cardiovascular/Chest: Positive for: Regular Rate, Rhythm Respiratory: Positive for: Normal Breath Sounds Extremity: Positive for: Normal ROM, Other (sensation intact.). Negative for: Deformity Neurologic/Psych: Positive for: Alert, Oriented (x3), Gait (steady in ED). Negative for: Aphasia, Facial Droop - ECG O2 Sat by Pulse Oximetry: 99 (RA) Pulse Ox Interpretation: Normal Medical Decision Making Medical Decision Makin Initial Impression: Wart Plan: Discharge and follow up in clinic. No further intervention required in ED. Lab/Diagnostic results d/w the patient in great detail. Diagnosis of wart d/w the patient. Based on history, exam and diagnostic results, plan will be for outpatient follow up with clinic. Patient instructed to follow-up with pmd / referral provided / the clinic in 1- 2 days without fail. Return to the emergency room at any time for any new or worsening symptoms. Patient states he fully agrees with and understands discharge instructions. States that he agrees with the plan and disposition. Verbalized and repeated discharge instructions and plan. I have given the patient opportunity to ask any additional questions. Disposition - Clinical Impression Clinical Impression: Wart - Patient ED Disposition Is Patient to be Admitted: No Counseled Patient/Family Regarding: Studies Performed, Diagnosis, Need For Followup - Disposition Referrals: [facility] [Outside] Disposition: Routine/Home Disposition Time: 23:20 Condition: STABLE Additional Instructions: The emergency medical care you received today was directed at your acute symptoms. If you were prescribed any medication, please fill it and take as directed. It may take several days for your symptoms to resolve. Return to the Emergency Department if your symptoms worsen, do not improve, or if you have any other problems. Please contact your doctor in 2 days for re-evaluation and follow up / or call one of the physicians/clinics you have been referred to that are listed on the Patient Visit Information form that is included in your discharge packet. Bring any paperwork you were given at discharge with you along with any medications you are taking to your follow up visit. Our treatment cannot replace ongoing medical care by a primary care provider (PCP) outside of the emergency department. Instructions: Skin Warts, Warts on the Skin Forms: [facility] (Turkish) Print Language: [place] CITIZEN - POA Present On Arrival: None
== END 2018-04-30 23:30 | disposition home or self-care (01) ==
LOC: H.ER 22:51
DX: B07.9 Viral wart, unspecified (principal)

== ENCOUNTER 2018-08-06 22:40 | Emergency (ER) | payer MEDICAID ==
[2018-08-06 22:41] VITALS: BMI 35.4
[2018-08-06 22:50] VITALS: BP 149/86; PULSE 83; RESP 18; TEMP 98.1; O2SAT 99
--- NOTE | 2018-08-07 00:25 | ED PDOC ---
Lower Extremity Pain/Injury Time Seen by Provider: 08/06/18 23:18 Chief Complaint (Nursing): Lower Extremity Problem/Injury Chief Complaint (Provider): B/L LE pain History Per: Patient Additional Complaint(s): 57 y/o M with hx of HTN who presents with B/L lower extremity swelling X 2 days. He has been walking frequently and noticed some swelling in both lower legs 2 days ago. He has developed pain in B/L LE below knee. Denies recent long car ride or immobilization, hx of PE/DVT, SOB, dizziness, palpitations or C/P. He has not taken anything for the pain. Past Medical History Reviewed: Historical Data, Nursing Documentation, Vital Signs Vital Signs: Last Vital Signs Temp 98.1 F 08/06/18 22:45 Pulse 83 08/06/18 22:45 Resp 18 08/06/18 22:45 BP 149/86 08/06/18 22:45 Pulse Ox 99 08/06/18 22:45 - Medical History PMH: HTN (stopped taking meds) Denies: Chronic Kidney Disease - Family History Family History: States: Unknown Family Hx - Immunization History Hx Tetanus Toxoid Vaccination: No Hx Influenza Vaccination: No Hx Pneumococcal Vaccination: No - Home Medications Home Medications: Ambulatory Orders Medication Instructions Recorded Ibuprofen [Motrin Tab] 600 mg PO Q6 #30 tab 06/30/17 Erythromycin 0.5% [Ilytocin] 1 mg OD QID #1 tube 07/13/17 Dicyclomine [Bentyl] 20 mg PO QID PRN #20 tab 08/26/17 Ondansetron ODT [Zofran ODT] 4 mg PO DAILY PRN #20 odt 08/26/17 traMADol [Ultram] 50 mg PO TID PRN #15 tab 11/05/17 Dorzolamide 2% [Trusopt 2% 2 drop OD TID #5 ml 12/18/17 Ocumeter Plus] oxyCODONE/Acetaminophen [Percocet 1 ea PO QID #16 tab 12/18/17 5/325 mg Tab] Compress.stocking,Knee,Reg,Lrg 1 each MC ONCE #2 each 08/07/18 [Relief Knee Close Toe] Ibuprofen [Motrin Tab] 600 mg PO Q6 PRN 7 Days tab 08/07/18 - Allergies Allergies/Adverse Reactions: Allergies Allergy/AdvReac Type Severity Reaction Status Date / Time No Known Allergies Allergy Verified 12/17/17 22:46 Wells Criteria for PE - Wells Criteria for Pulmonary Embolism Clinical Signs and Symptoms of DVT: No P.E is #1 Diagnosis, or Equally Likely: No Heart Rate >100: No Immobilization at least 3 days;Surgery previous 4 weeks: No Previous, objectively diagnosed PE or DVT: No Hemoptysis: No Malignancy w/treatment within 6 months, or palliative: No Total Score: 0 Review of Systems Constitutional: Negative for: Fever, Chills Musculoskeletal: Positive for: Leg Pain (b/l and swelling) Physical Exam - Reviewed Nursing Documentation Reviewed: Yes Vital Signs Reviewed: Yes - Physical Exam Appears: Positive for: Well Head Exam: Positive for: ATRAUMATIC Skin: Positive for: Normal Color Cardiovascular/Chest: Positive for: Regular Rate, Rhythm Respiratory: Positive for: Normal Breath Sounds Extremity: Positive for: Tenderness (generalized tenderness in B/L LE, no isolated calf tenderness), Pedal Edema (2+ pitting edema to just below knees B/L, symmetrical) - ECG O2 Sat by Pulse Oximetry: 99 Medical Decision Making Medical Decision Making: LE Venous Duplex Ibuprofen 600mg PO x 1 02:37 US Findings: Real-time ultrasound images of the deep venous system with Doppler evaluation. Normal compression, spontaneity and augmentation. Normal color Doppler. No intraluminal thrombus is seen. IMPRESSION: No evidence of deep venous thrombosis. Disposition - Clinical Impression Clinical Impression: Localized swelling of both lower legs - Patient ED Disposition Is Patient to be Admitted: No Counseled Patient/Family Regarding: Studies Performed, Diagnosis, Need For Followup, Rx Given - Disposition Referrals: [facility] [Outside] Disposition: Routine/Home Disposition Time: 04:15 Condition: STABLE Additional Instructions: F/u with your primary care doctor for further evaluation of leg swelling. You can take Tylenol or Ibuprofen for the pain. Use compression stockings and elevate your legs as much as possible. Return to ER if you develop shortness of breath or one leg swells more than the other. Prescriptions: Compress.stocking,Knee,Reg,Lrg [Relief Knee Close Toe] 1 each MC ONCE #2 each Ibuprofen [Motrin Tab] 600 mg PO Q6 PRN 7 Days tab PRN Reason: Pain, Moderate (4-7) Forms: [facility] (Polish) Print Language: ISRAELI
--- NOTE | 2018-08-07 12:03 | US ---
Date of service: 08/07/2018 PROCEDURE: Bilateral lower extremity venous duplex Doppler. HISTORY: acute B/L LE swelling w/ pain COMPARISON: None available. TECHNIQUE: Bilateral common femoral, superficial femoral, popliteal and posterior tibial veins were evaluated. Flow was assessed with color Doppler, compressibility, assessment of phasic flow and augmentation response. FINDINGS: COMMON FEMORAL VEIN: Right CFV: Unremarkable. Left CFV: Unremarkable. SUPERFICIAL FEMORAL VEIN: Right SFV: Unremarkable. Left SFV: Unremarkable. POPLITEAL VEIN: Right Popliteal: Unremarkable. Left Popliteal: Unremarkable. POSTERIOR TIBIAL VEIN: Right PTV: Unremarkable. Left PTV: Unremarkable. OTHER FINDINGS: None. IMPRESSION: No evidence of deep venous thrombosis.
== END 2018-08-07 04:30 | disposition home or self-care (01) ==
LOC: H.ER 22:40
DX: R60.0 Localized edema (principal); I10 Essential (primary) hypertension